=== PATIENT | female | born 1975 | race Hispanic/Latino ===

== ENCOUNTER 2017-01-18 22:00 | Observation (INO) | payer OTHER ==
[~2017-01-18] VITALS: Ht 157.5 cm; Wt 81.5 kg
[2017-01-19 04:05] LABS: EOSINOPHIL (%) 0.4 % (0-5); EOSINOPHIL COUNT 0.1 K/uL (0-0.3); HEMATOCRIT 36.7 % (36.0-46.0); IMMATURE GRANULOCYTE (%) 0.5 % (0.0-0.7); IMMATURE GRANULOCYTE COUNT 0.1 K/uL; INSTRUMENT ABS NEUTROPHIL CT 9.1 K/uL; LYMPHOCYTE COUNT 3.5 K/uL (1.0-2.8); MCH 27.9 PG (29.0-34.0); MCHC 32.7 G/DL (30.0-36.0); MCV 85.3 FL (83-99); MEAN PLAT.VOLUME 10.6 uM^3 (9.5-12.4); MONOCYTE (%) 7.1 % (3-12); NEUTROPHIL (%) 66.2 % (45-76); NEUTROPHIL COUNT 9.1 K/uL (1.8-6.4); PLATELET COUNT 275 K/uL (156-360); RBC DIS.WIDTH-CV 12.9 % (11.8-14.6); WHITE BLOOD COUNT 13.7 K/uL (4.1-10.2)
[2017-01-19 04:15] LABS: CHLORIDE 109 mEq/L (99-109); POTASSIUM 3.4 mEq/L (3.7-5.4); SODIUM 141 mEq/L (136-147)
[2017-01-19 04:17] LABS: GLUCOSE 112 mg/dL (70-99)
[2017-01-19 04:18] LABS: ANION GAP 8 MEQ/L (2-14)
[2017-01-19 04:21] LABS: GFR ESTIMATE (CALCULATED) > 59 mL/min/; UREA NITROGEN (BUN) 9 mg/dL (9-23)
[2017-01-19 04:31] LABS: QUANTITATIVE HCG < 4.0 MIU/ML
[2017-01-19 05:03] VITALS: BP 127/61
[2017-01-19 08:13] VITALS: BP 133/64
[2017-01-19 11:23] VITALS: BP 139/71
[2017-01-19 16:00] VITALS: BP 112/73
[2017-01-19 20:07] VITALS: BP 121/68
[2017-01-19 23:48] VITALS: BP 127/71
[2017-01-20 08:16] VITALS: BP 120/65
[2017-01-20 11:47] VITALS: BP 142/70
[2017-01-20 15:58] VITALS: BP 129/69
[2017-01-20 20:05] VITALS: BP 118/62
[2017-01-20 23:16] VITALS: BP 124/72
[2017-01-21 04:07] VITALS: BP 117/67
[2017-01-21 08:12] VITALS: BP 130/74
[2017-01-21 12:09] VITALS: BP 108/52
[2017-01-21] MEDS ORDERED: MORPHINE 22 MG/1 ML IM (15:47)
[2017-01-21] MEDS ORDERED: MORPHINE 22 MG/1 ML IV (15:47)
[2017-01-21] MEDS ORDERED: OXYCODONE-ACET1 EACH PO (15:49)
[2017-01-21] MEDS ORDERED: PERCOCET 10/1 TABLET PO (15:50)
== END 2017-01-21 14:15 ==
LOC: EME 22:00 → EDBD 22:00 → 3EAST 01-19 02:13 → EDOF 01-19 02:13 → ENRESERV 01-19 02:15 → 3EAST 01-19 04:36
PROVIDERS: Emergency Medicine
DX: S82.851A Displaced trimalleolar fracture of right lower leg, initial encounter for closed fracture (principal); S92.212A Displaced fracture of cuboid bone of left foot, initial encounter for closed fracture; W10.9XXA Fall (on) (from) unspecified stairs and steps, initial encounter; Y93.89 Activity, other specified; Y92.22 Religious institution as the place of occurrence of the external cause
CPT/HCPCS: 73600; 73610; 73630; 76000; 80048; 84702; 85025; 97530 GO; 97530 GP; 99281; 99285; C1713; G0378; G8978 GP CJ; G8979 GP CI; G8980 GP CK; G8987 GO CJ; G8988 CI; G8988 GO CH; G8989 GO CK; J0131; J0690; J1100; J1170; J1885; J2250; J2270; J2405; J3010; J7030; S0020

== ENCOUNTER 2017-01-21 12:36 | Inpatient (IN) | payer OTHER ==
[~2017-01-21] VITALS: Ht 157.5 cm; Wt 78.2 kg
[2017-01-21 15:00] VITALS: BP 124/66
[2017-01-21] MEDS ORDERED: MORPHINE 22 MG/1 ML IV (15:47)
[2017-01-21] MEDS ORDERED: MORPHINE 22 MG/1 ML IM (15:47)
[2017-01-21] MEDS ORDERED: OXYCODONE-ACET1 EACH PO (15:49)
[2017-01-21] MEDS ORDERED: PERCOCET 10/1 TABLET PO (15:50)
[2017-01-21 23:20] VITALS: BP 107/55
[2017-01-22 06:24] VITALS: BP 109/63
[2017-01-22 06:31] LABS: HEMATOCRIT 34.6 % (36.0-46.0); MCH 27.7 PG (29.0-34.0); MCHC 32.4 G/DL (30.0-36.0); MCV 85.6 FL (83-99); MEAN PLAT.VOLUME 10.4 uM^3 (9.5-12.4); PLATELET COUNT 248 K/uL (156-360); RBC DIS.WIDTH-CV 12.8 % (11.8-14.6); RBC DIS.WIDTH-SD 40.1 % (39-53); RED BLOOD COUNT 4.04 M/uL (3.80-5.20); WHITE BLOOD COUNT 7.1 K/uL (4.1-10.2)
[2017-01-22 06:56] LABS: ALKALINE PHOSPHATASE 74 IU/L (3-129); ANION GAP 9 MEQ/L (2-14); CHLORIDE 104 MEQ/L (99-109); GFR ESTIMATE (CALCULATED) > 59 mL/min/; GLUCOSE 87 mg/dL (70-99); SAMPLE HEMOLYSIS CHECK 1; SAMPLE ICTERIC CHECK 0; SAMPLE LIPEMIA CHECK 0; SODIUM 140 MEQ/L (136-147); TOTAL BILIRUBIN 0.5 MG/DL (0.0-1.0); UREA NITROGEN (BUN) 12 mg/dL (9-23)
[2017-01-22 15:23] VITALS: BP 123/73
[2017-01-23 04:37] VITALS: BP 107/56
[2017-01-23 15:22] VITALS: BP 108/70
[2017-01-24 05:15] VITALS: BP 127/76
[2017-01-24 16:06] VITALS: BP 119/65
[2017-01-25 05:08] VITALS: BP 115/65
[2017-01-25 15:02] VITALS: BP 114/67
[2017-01-26 04:42] VITALS: BP 123/60
[2017-01-26 16:03] VITALS: BP 110/67
[2017-01-27 04:25] VITALS: BP 116/65
[2017-01-27 15:44] VITALS: BP 120/68
[2017-01-28 06:00] VITALS: BP 109/64
[2017-01-28 15:21] VITALS: BP 112/61
[2017-01-29 06:36] VITALS: BP 100/60
[2017-01-29 15:08] VITALS: BP 120/94
[2017-01-30 05:24] VITALS: BP 100/59
[2017-01-30 15:02] VITALS: BP 107/61
[2017-01-31 04:58] VITALS: BP 100/55
[2017-01-31 06:55] LABS: MCH 27.9 PG (29.0-34.0); MCHC 32.9 G/DL (30.0-36.0); MEAN PLAT.VOLUME 10.1 uM^3 (9.5-12.4); PLATELET COUNT 298 K/uL (156-360); RBC DIS.WIDTH-CV 13.2 % (11.8-14.6); RBC DIS.WIDTH-SD 40.5 % (39-53); RED BLOOD COUNT 4.12 M/uL (3.80-5.20); WHITE BLOOD COUNT 6.8 K/uL (4.1-10.2)
[2017-01-31 07:19] LABS: ANION GAP 8 MEQ/L (2-14); CHLORIDE 108 MEQ/L (99-109); GFR ESTIMATE (CALCULATED) > 59 mL/min/; GLUCOSE 83 mg/dL (70-99); POTASSIUM 4.1 MEQ/L (3.7-5.4); SAMPLE HEMOLYSIS CHECK 0; SAMPLE ICTERIC CHECK 0; SAMPLE LIPEMIA CHECK 0; SODIUM 140 MEQ/L (136-147); UREA NITROGEN (BUN) 12 mg/dL (9-23)
[2017-01-31 15:49] VITALS: BP 113/75
[2017-02-01 05:11] VITALS: BP 122/60
[2017-02-01] MEDS ORDERED: THERAGRAN1 TABLET PO (10:01)
[2017-02-01] MEDS ORDERED: ASPIRIN EC325 MG PO (10:01)
[2017-02-01] MEDS ORDERED: OXYCODONE-ACET1 EACH PO (10:01)
[2017-02-01] MEDS ORDERED: DOCUSATE SODIU100 MG PO (10:01)
[2017-02-01] MEDS ORDERED: SENNA PLUS TAB1 EACH PO (10:01)
[2017-02-01] MEDS ORDERED: POLYETHYLENE GL17 GM PO (10:01)
== END 2017-02-01 15:15 | disposition home health service (06) | DRG 561 ==
LOC: 3WEST 12:36 → ENPENDDIS 02-01 → 3WEST 02-01 15:15
PROVIDERS: Physical Medicine & Rehabilitation Pain Medicine
PROC: F07M0ZZ Range of Motion and Joint Mobility Treatment of Musculoskeletal System - Whole Body (ICD-10-PCS; principal; 2017-01-21)
DX: S82.851D Displaced trimalleolar fracture of right lower leg, subsequent encounter for closed fracture with routine healing (principal); S92.212D Displaced fracture of cuboid bone of left foot, subsequent encounter for fracture with routine healing; R26.2 Difficulty in walking, not elsewhere classified; S16.1XXA Strain of muscle, fascia and tendon at neck level, initial encounter; S29.012A Strain of muscle and tendon of back wall of thorax, initial encounter; S39.012A Strain of muscle, fascia and tendon of lower back, initial encounter; W10.9XXA Fall (on) (from) unspecified stairs and steps, initial encounter; E87.6 Hypokalemia; D64.9 Anemia, unspecified; D72.829 Elevated white blood cell count, unspecified; K59.00 Constipation, unspecified; R60.9 Edema, unspecified; Z83.3 Family history of diabetes mellitus
CPT/HCPCS: 72040; 72070; 72100; 73610; 73630; 80048; 80053; 85027; 97110 GO; 97530 GP